=== PATIENT | male | born 1950 | race Caucasian/White ===

== ENCOUNTER 2017-07-07 22:21 | Emergency (ER) | payer MEDICARE ==
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
== END 2017-07-08 00:30 | disposition home or self-care (01) ==
LOC: JP.ED 22:21
DX: G81.92 Hemiplegia, unspecified affecting left dominant side (principal); R93.0 Abnormal findings on diagnostic imaging of skull and head, not elsewhere classified; I12.9 Hypertensive chronic kidney disease with stage 1 through stage 4 chronic kidney disease, or unspecified chronic kidney disease; N18.3 Chronic kidney disease, stage 3 (moderate); E11.22 Type 2 diabetes mellitus with diabetic chronic kidney disease; Z79.82 Long term (current) use of aspirin; Z79.899 Other long term (current) drug therapy
CPT/HCPCS: 36415; 70450; 80048; 84484; 85027; 93005; 99284; 99285-25

== ENCOUNTER 2019-01-02 16:45 | Emergency (ER) | payer MEDICARE ==
--- NOTE | 2019-01-02 17:50 | EDM.PDOC ---
ED HPI GENERAL MEDICAL PROBLEM - General Chief Complaint: Wound Recheck Stated Complaint: EAR IS BLEEDING Time Seen by Provider: 01/02/19 17:20 Source of Information: Reports: Patient, Family History Limitations: Reports: No Limitations - History of Present Illness INITIAL COMMENTS - FREE TEXT/NARRATIVE: 68-year-old male with a persistent bleeding lesion on his left earlobe. It's been bleeding for the past 2 hours. He scratched it and it started bleeding, there was no pain or previous injury. He is on Plavix. Onset: Sudden Duration: Hour(s): Associated Symptoms: Reports: No Other Symptoms - Related Data Allergies Allergy/AdvReac Type Severity Reaction Status Date / Time No Known Allergies Allergy Verified 01/02/19 17:09 Home Meds: Home Meds Aspirin [Ecotrin] 81 mg PO DAILY 02/16/17 [History] Losartan Potassium 50 mg PO DAILY 02/16/17 [History] Rosuvastatin [Crestor] 10 mg PO BEDTIME 02/16/17 [History] amLODIPine Besylate [Norvasc] 5 mg PO DAILY 07/07/17 [History] Carvedilol 1 tab PO BID 05/15/18 [History] Clopidogrel Bisulfate [Clopidogrel] 1 tab PO DAILY 05/15/18 [History] Glimepiride [Amaryl] 2 mg PO DAILY 01/02/19 [History] Past Medical History HEENT History: Reports: Impaired Vision Cardiovascular History: Reports: High Cholesterol, Hypertension, Other (See Below) Other Cardiovascular History: pulmonary edema Respiratory History: Reports: Other (See Below) Other Respiratory History: pleurisy Genitourinary History: Reports: Other (See Below) Other Genitourinary History: stage 3 kidney disease Neurological History: Reports: Migraines Psychiatric History: Reports: Other (See Below) Other Psychiatric History: claustrophobia Endocrine/Metabolic History: Reports: Diabetes, Type II Other Endocrine/Metabolic History: pre diabetic but taking oral medicine - Infectious Disease History Infectious Disease History: Reports: Chicken Pox, Measles - Past Surgical History HEENT Surgical History: Reports: Tonsillectomy Cardiovascular Surgical History: Reports: Coronary Artery Stent, Percutaneous Transluminal Angioplasty Other Cardiovascular Surgeries/Procedures: 4 stents Musculoskeletal Surgical History: Reports: Arthroscopic Knee, Arthroscopic Procedure Social & Family History - Tobacco Use Smoking Status *Q: Never Smoker - Caffeine Use Caffeine Use: Reports: Coffee, Tea - Alcohol Use Days Per Week of Alcohol Use: 5 Number of Drinks Per Day: 2 Total Drinks Per Week: 10 - Recreational Drug Use Recreational Drug Use: No ED ROS GENERAL - Review of Systems Review Of Systems: See Below Constitutional: Denies: Fever, Chills Respiratory: Denies: Shortness of Breath Cardiovascular: Denies: Chest Pain Neurological: Denies: Headache ED EXAM, SKIN/RASH Exam: See Below Exam Limited By: No Limitations General Appearance: Alert, No Apparent Distress Ears: Other (The left ear lobe has a very small 2 mm open wound that is persistently oozing and bleeding.) Respiratory/Chest: No Respiratory Distress Course - Vital Signs Last Recorded V/S: Last Vital Signs Temp 97.8 F 01/02/19 17:12 Pulse 69 01/02/19 17:12 Resp 18 01/02/19 17:12 BP 159/91 H 01/02/19 17:12 Pulse Ox 95 01/02/19 17:12 - Re-Assessments/Exams Free Text/Narrative Re-Assessment/Exam: 01/02/19 17:52 The earlobe was infiltrated with a small amount of 1% lidocaine with epinephrine. After cleansing with alcohol, cautery was used to stop the bleeding. There were no complications. A Band-Aid was placed over the wound for protection. This should heal up it's left alone. Departure - Departure Time of Disposition: 18:15 Disposition: Home, Self-Care 01 Clinical Impression: Bleeding from left ear - Discharge Information Instructions: Wound Care, Adult Referrals: Dania Catalan PA-C [Primary Care Provider] - Forms: ED Department Discharge Care Plan Goals: Keep wound covered and clean while healing. Try direct pressure if bleeding recurs.
== END 2019-01-02 18:15 | disposition home or self-care (01) ==
LOC: JP.ED 16:45
DX: S01.302A Unspecified open wound of left ear, initial encounter (principal); I12.9 Hypertensive chronic kidney disease with stage 1 through stage 4 chronic kidney disease, or unspecified chronic kidney disease; E11.22 Type 2 diabetes mellitus with diabetic chronic kidney disease; N18.3 Chronic kidney disease, stage 3 (moderate); E78.00 Pure hypercholesterolemia, unspecified; Z79.82 Long term (current) use of aspirin; Z79.84 Long term (current) use of oral hypoglycemic drugs; Z79.899 Other long term (current) drug therapy
CPT/HCPCS: 12011; 99281; 99282

== ENCOUNTER 2019-12-23 09:22 | Emergency (ER) | payer MEDICARE ==
--- NOTE | 2019-12-23 10:32 | EDM.PDOC ---
ED HPI GENERAL MEDICAL PROBLEM - General Chief Complaint: General Stated Complaint: UNSURE IF HEART OR LEFT SHOULDER Time Seen by Provider: 12/23/19 10:10 Source of Information: Reports: Patient History Limitations: Reports: No Limitations - History of Present Illness INITIAL COMMENTS - FREE TEXT/NARRATIVE: 69-year-old male with a history of coronary artery disease and hypokalemia, presents with vague left shoulder and left anterior chest discomfort for the past several days after increasing activity with his left shoulder. It does hurt to move his arm and take a deep breath, he has no shortness of breath or diaphoresis. He called the nurse line to get an appointment and they sent him to the emergency room. He has no pain while lying still, he can reproduce a small amount of pain with a deep breath or certain range of motion's of the shoulder, it tends to be located anteriorly over the left chest wall. No rash over painful area or bruising. He is also interested in obtaining a COVID test. He was told to come in to get a COVID test and EKG. Left Chest Pain Score (Numeric/FACES): 0 - Related Data Allergies Allergy/AdvReac Type Severity Reaction Status Date / Time No Known Allergies Allergy Verified 12/23/19 09:47 Home Meds: Home Meds Aspirin [Ecotrin] 81 mg PO DAILY 02/16/17 [History] Losartan Potassium 50 mg PO DAILY 02/16/17 [History] Rosuvastatin [Crestor] 10 mg PO BEDTIME 02/16/17 [History] amLODIPine Besylate [Norvasc] 5 mg PO DAILY 07/07/17 [History] Clopidogrel Bisulfate [Clopidogrel] 1 tab PO DAILY 05/15/18 [History] carvediloL [Carvedilol] 1 tab PO BID 05/15/18 [History] Glimepiride [Amaryl] 2 mg PO DAILY 01/02/19 [History] Past Medical History HEENT History: Reports: Impaired Vision Cardiovascular History: Reports: High Cholesterol, Hypertension, Other (See [place]) Other Cardiovascular History: pulmonary edema Respiratory History: Reports: Other (See Below) Other Respiratory History: pleurisy Genitourinary History: Reports: Other (See Below) Other Genitourinary History: stage 3 kidney disease Musculoskeletal History: Reports: None Neurological History: Reports: Migraines Psychiatric History: Reports: Other (See Below) Other Psychiatric History: claustrophobia Endocrine/Metabolic History: Reports: Diabetes, Type II Other Endocrine/Metabolic History: pre diabetic but taking oral medicine - Infectious Disease History Infectious Disease History: Reports: Chicken Pox, Measles - Past Surgical History Head Surgeries/Procedures: Reports: None HEENT Surgical History: Reports: Tonsillectomy Cardiovascular Surgical History: Reports: Coronary Artery Stent, Percutaneous Transluminal Angioplasty Other Cardiovascular Surgeries/Procedures: 4 stents Respiratory Surgical History: Reports: None Endocrine Surgical History: Reports: None Neurological Surgical History: Reports: None Musculoskeletal Surgical History: Reports: Arthroscopic Knee, Arthroscopic Procedure, Shoulder Surgery Dermatological Surgical History: Reports: None Social & Family History - Tobacco Use Smoking Status *Q: Former Smoker Years of Tobacco use: 30 Packs/Tins Daily: 0 Used Tobacco, but Quit: Yes Month/Year Tobacco Last Used: 1999 Second Hand Smoke Exposure: No - Caffeine Use Caffeine Use: Reports: Coffee - Recreational Drug Use Recreational Drug Use: No ED ROS GENERAL - Review of Systems Review Of Systems: See Below Constitutional: Denies: Fever, Chills, Malaise HEENT: Denies: Throat Pain Respiratory: Reports: Pleuritic Chest Pain. Denies: Shortness of Breath, Cough Cardiovascular: Reports: Chest Pain GI/Abdominal: Denies: Abdominal Pain, Nausea, Vomiting Skin: Reports: No Symptoms Neurological: Denies: Dizziness, Headache Psychiatric: Reports: No Symptoms ED EXAM, GENERAL - Physical Exam Exam: See Below Exam Limited By: No Limitations General Appearance: Alert, No Apparent Distress Head: Atraumatic Neck: Non-Tender Respiratory/Chest: Lungs Clear Cardiovascular: Regular Rate, Rhythm. No: Extra Beats GI/Abdominal: Soft, Non-Tender Extremities: Normal Inspection. No: Pedal Edema Neurological: Alert, Oriented, Other (I can reproduce anterior shoulder discomfort with external rotation of the shoulder on the left, and palpation of the lateral costochondral junction) Psychiatric: Normal Affect, Normal Mood Course - Vital Signs Last Recorded V/S: Last Vital Signs Temp 97.7 F 12/23/19 09:56 Pulse 71 12/23/19 10:35 Resp 15 12/23/19 10:35 BP 143/92 H 12/23/19 10:35 Pulse Ox 96 12/23/19 10:35 - Orders/Labs/Meds Orders: Active Orders 24 hr Category Date Time Status CORONAVIRUS COVID-19, [facility]CEE Stat Lab 12/23/19 10:57 Received Labs: Laboratory Tests 12/23/19 12/23/19 12/23/19 Range/Units 10:29 10:29 10:29 WBC 6.4 (4.5-11.0) K/uL RBC 4.68 (4.30-5.90) M/uL Hgb 13.8 (12.0-15.0) g/dL Hct 41.7 (40.0-54.0) % MCV 89 (80-98) fL MCH 30 (27-31) pg MCHC 33 (32-36) % Plt Count 206 (150-400) K/uL Neut % (Auto) 66 (36-66) % Lymph % (Auto) 24 (24-44) % [place] % (Auto) 9 H (2-6) % Eos % (Auto) 1 L (2-4) % Baso % (Auto) 0 (0-1) % Sodium 141 (140-148) mmol/L Potassium 4.0 (3.6-5.2) mmol/L Chloride 105 (100-108) mmol/L Carbon Dioxide 28 (21-32) mmol/L Anion Gap 8.3 (5.0-14.0) mmol/L BUN 20 H (7-18) mg/dL Creatinine 1.2 (0.8-1.3) mg/dL Est Cr Clr Drug Dosing 59.14 mL/min Estimated GFR (MDRD) 60 (>60) Glucose 202 H (74-106) mg/dL Calcium 8.7 (8.5-10.1) mg/dL Troponin I < 0.017 (0.000-0.056) ng/mL - Re-Assessments/Exams Free Text/Narrative Re-Assessment/Exam: 12/23/19 10:39 EKG shows no acute findings. CBC, BMP and troponin were obtained as well as a COVID-19 test at the patient's request. He is not significantly symptomatic and the COVID test is being done at the patient request only. This will be a send out. 12/23/19 11:14 CBC and BMP are reassuring, troponin is 0. Patient will be informed of his COVID test when available, a regular dose of naproxen or ibuprofen may be beneficial. Departure - Departure Time of Disposition: 11:21 Disposition: Home, Self-Care 01 Clinical Impression: Costochondritis - Discharge Information Instructions: Costochondritis, [id number] Referrals: Dania Catalan PA-C [Primary Care Provider] - Forms: ED Department Discharge Care Plan Goals: Increase activity as tolerated, regular dose of anti-inflammatory will be helpful and recheck next week if not improving satisfactorily. We will be in touch with you with your COVID results when available. Sepsis Event Note (ED) - Evaluation Sepsis Screening Result: No Definite Risk - Focused Exam Vital Signs: Vital Signs Temp Pulse Resp BP Pulse Ox 12/23/19 10:35 71 15 143/92 H 96 12/23/19 10:05 74 10 L 140/82 94 L 12/23/19 09:56 97.7 F 76 16 131/72 95 12/23/19 09:53 97.7 F 76 16 131/72 95 - My Orders Last 24 Hours: My Active Orders 12/23/19 10:57 CORONAVIRUS COVID-19, KAYCEE Stat - Assessment/Plan Last 24 Hours: My Active Orders 12/23/19 10:57 CORONAVIRUS COVID-19, K[facility]CEE Stat
== END 2019-12-23 11:21 | disposition home or self-care (01) ==
LOC: JP.ED 09:22
DX: M94.0 Chondrocostal junction syndrome [Tietze] (principal); E78.00 Pure hypercholesterolemia, unspecified; I12.9 Hypertensive chronic kidney disease with stage 1 through stage 4 chronic kidney disease, or unspecified chronic kidney disease; N18.3 Chronic kidney disease, stage 3 (moderate); E11.22 Type 2 diabetes mellitus with diabetic chronic kidney disease; Z79.84 Long term (current) use of oral hypoglycemic drugs; Z79.02 Long term (current) use of antithrombotics/antiplatelets; Z79.899 Other long term (current) drug therapy; Z79.82 Long term (current) use of aspirin; Z87.891 Personal history of nicotine dependence; Z20.828 Contact with and (suspected) exposure to other viral communicable diseases
CPT/HCPCS: 36415; 80048; 84484; 85025; 93010; 99283; 99284; U0002

== ENCOUNTER 2020-02-08 09:52 | Emergency (ER) | payer MEDICARE ==
[2020-02-08] MEDS ORDERED: Sodium Chloride 0.9% 10 ML Syringe FLUSH PRN (10:21)
--- NOTE | 2020-02-08 10:42 | EDM.PDOC ---
ED HPI GENERAL MEDICAL PROBLEM - General Chief Complaint: Neuro Symptoms/Deficits Stated Complaint: TIA SYMPTOMS Time Seen by Provider: 02/08/20 10:25 Source of Information: Reports: Patient, Old Records, RN History Limitations: Reports: No Limitations - History of Present Illness INITIAL COMMENTS - FREE TEXT/NARRATIVE: 69 yo male with a pHx of a TIA that was treated with Plavix and who remains on Plavix presents with poor coordination of his L hand/arm since about 0200h today. He thinks he may have slight numbness of that hand as well. No other neuro deficits noted by patient or . No MARSHALL. Was awake at onset. 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) (none) Headache Pain Score (Numeric/FACES): 1 - Related Data Allergies Allergy/AdvReac Type Severity Reaction Status Date / Time No Known Allergies Allergy Verified 02/08/20 10:07 Home Meds: Home Meds Aspirin [Ecotrin] 81 mg PO DAILY 02/16/17 [History] Losartan Potassium 50 mg PO DAILY 02/16/17 [History] Rosuvastatin [Crestor] 10 mg PO BEDTIME 02/16/17 [History] amLODIPine Besylate [Norvasc] 5 mg PO DAILY 07/07/17 [History] Clopidogrel Bisulfate [Clopidogrel] 1 tab PO DAILY 05/15/18 [History] carvediloL [Carvedilol] 1 tab PO BID 05/15/18 [History] Glimepiride [Amaryl] 2 mg PO DAILY 01/02/19 [History] Sildenafil [Revatio] 20 mg PO DAILY 02/08/20 [History] Past Medical History HEENT History: Reports: Impaired Vision Cardiovascular History: Reports: High Cholesterol, Hypertension, Other (See Below) Other Cardiovascular History: pulmonary edema Respiratory History: Reports: Other (See Below) Other Respiratory History: pleurisy Genitourinary History: Reports: Other (See Below) Other Genitourinary History: stage 3 kidney disease Musculoskeletal History: Reports: None Neurological History: Reports: Migraines, TIA Psychiatric History: Reports: Other (See Below) Other Psychiatric History: claustrophobia Endocrine/Metabolic History: Reports: Diabetes, Type II Other Endocrine/Metabolic History: pre diabetic but taking oral medicine - Infectious Disease History Infectious Disease History: Reports: Hepatitis C, Measles - Past Surgical History Head Surgeries/Procedures: Reports: None HEENT Surgical History: Reports: Tonsillectomy Cardiovascular Surgical History: Reports: Coronary Artery Stent, Percutaneous Transluminal Angioplasty Other Cardiovascular Surgeries/Procedures: 4 stents Musculoskeletal Surgical History: Reports: Arthroscopic Knee, Arthroscopic Procedure, Shoulder Surgery Social & Family History - Tobacco Use Smoking Status *Q: Never Smoker - Caffeine Use Caffeine Use: Reports: Coffee - Alcohol Use Days Per Week of Alcohol Use: 3 Number of Drinks Per Day: 3 Total Drinks Per Week: 9 - Recreational Drug Use Recreational Drug Use: Yes Recreational Drug Type: Reports: Marijuana/Hashish Recreational Drug Use Frequency: Weekly ED ROS GENERAL - Review of Systems Review Of Systems: See Below Constitutional: Reports: No Symptoms HEENT: Reports: No Symptoms Respiratory: Reports: No Symptoms Cardiovascular: Reports: No Symptoms GI/Abdominal: Reports: No Symptoms : Reports: No Symptoms Musculoskeletal: Reports: No Symptoms Skin: Reports: No Symptoms Neurological: Reports: Other (coordination deficit L hand) Psychiatric: Reports: No Symptoms ED EXAM, NEURO - Physical Exam Exam: See Below Exam Limited By: No Limitations General Appearance: Alert, WD/WN, No Apparent Distress Eye Exam: Bilateral Eye: EOMI, Normal Inspection, PERRL Ears: Normal External Exam, Normal Canal, Hearing Grossly Normal, Normal TMs Nose: Normal Inspection, No Blood Throat/Mouth: Normal Inspection, Normal Lips, Normal Oropharynx, Normal Voice, No Airway Compromise Head Exam: Atraumatic, Normocephalic Neck: Normal Inspection Respiratory/Chest: No Respiratory Distress, Lungs Clear, Normal Breath Sounds, No Accessory Muscle Use Cardiovascular: Regular Rate, Rhythm, No Edema. No: Irregularly Irregular GI/Abdominal: Normal Bowel Sounds, Soft, Non-Tender, No Distention Neurological: Alert, Normal Mood/Affect, Normal Dorsiflexion, CN II-XII Intact, Normal Plantar Flexion, Normal Reflexes, No Motor/Sensory Deficits, Oriented x 3, Other (struggles with putting his mask over his L ear, having a hard time holding his phone with his L hand. ). No: Abnormal Gait, Abnormal Finger to Nose (on left), Difficulty Walking DTR: 2+: Bicep (R), Bicep (L) Extremities: Normal Inspection, Normal Range of Motion, Non-Tender, No Pedal Edema Psychiatric: Normal Affect, Normal Mood Skin Exam: Warm, Dry, Intact, Normal Color, No Rash Course - Vital Signs Text/Narrative:: Case discussed with the 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 DIRECTED Sodium Chloride 0.9% [Normal Saline] 1,000 ml Med 02/08/20 15:45 Active IV ASDIRECTED Sodium Chloride 0.9% [Saline Flush] Med 02/08/20 10:21 Active 10 ml FLUSH ASDIRECTED PRN Saline Lock Insert [OM.PC] Routine Oth 02/08/20 10:21 Ordered Medication Orders Sodium Chloride (Normal Saline) 1,000 mls @ 500 mls/hr IV ASDIRECTED DOROTHY Iopamidol (Isovue-370 (76%)) 100 ml IV . DIRECTED DOROTHY Stop: 02/08/20 20:00 Last Admin: 02/08/20 16:19 Dose: 100 ml Documented by: DEVIKA Sodium Chloride (Saline Flush) 10 ml FLUSH ASDIRECTED PRN PRN Reason: Keep Vein Open Labs: Laboratory Tests 02/08/20 02/08/20 Range/Units 10:32 10:32 WBC 5.8 (4.5-11.0) K/uL RBC 4.75 (4.30-5.90) M/uL Hgb 14.0 (12.0-15.0) g/dL Hct 42.7 (40.0-54.0) % MCV 90 (80-98) fL MCH 30 (27-31) pg MCHC 33 (32-36) % Plt Count 198 (150-400) K/uL Sodium 140 (140-148) mmol/L Potassium 4.0 (3.6-5.2) mmol/L Chloride 102 (100-108) mmol/L Carbon Dioxide 29 (21-32) mmol/L Anion Gap 8.7 (5.0-14.0) mmol/L BUN 22 H (7-18) mg/dL Creatinine 1.2 (0.8-1.3) mg/dL Est Cr Clr Drug Dosing 59.14 mL/min Estimated GFR (MDRD) 60 (>60) Glucose 174 H (74-106) mg/dL Calcium 8.8 (8.5-10.1) mg/dL Troponin I < 0.017 (0.000-0.056) ng/mL Meds: Medications Generic Name Dose Route Start Last Admin Trade Name Freq PRN Reason Stop Dose Admin Sodium Chloride 1,000 mls @ 500 mls/hr 02/08/20 15:45 Normal Saline IV ASDIRECTED DOROTHY Iopamidol 100 ml 02/08/20 16:00 02/08/20 16:19 Isovue-370 (76%) IV 02/08/20 20:00 100 ml . DIRECTED DOROTHY Administration Sodium Chloride 10 ml 02/08/20 10:21 Saline Flush FLUSH ASDIRECTED PRN Keep Vein Open Discontinued Medications Generic Name Dose Route Start Last Admin Trade Name Freq PRN Reason Stop Dose Admin Diazepam 15 mg 02/08/20 10:46 02/08/20 12:08 Valium. PO 02/08/20 10:47 15 mg ONETIME ONE Administration Sodium Chloride 100 mls @ 3 mls/sec 02/08/20 16:00 02/08/20 16:20 Normal Saline IV 02/08/20 16:01 4 mls/sec ASDIRECTED DOROTHY Administration Sodium Chloride 10 ml 02/08/20 15:46 02/08/20 16:20 Saline Flush FLUSH 02/08/20 15:47 10 ml ONETIME ONE Administration - Radiology Interpretation Free Text/Narrative:: MRI Brain-subacute CVA noted R post parietal lobe CTA neck-50% R internal carotid stenosis Departure - Departure Time of Disposition: 17:07 Disposition: Home, Self-Care 01 Condition: Fair Clinical Impression: CVA (cerebral vascular accident) Qualifiers: CVA mechanism: unspecified Qualified Code(s): I63.9 - Cerebral infarction, unspecified - Discharge Information *PRESCRIPTION DRUG MONITORING PROGRAM REVIEWED*: Not Applicable *COPY OF PRESCRIPTION DRUG MONITORING REPORT IN PATIENT ANGEL: Not Applicable Referrals: PCP,None [Primary Care Provider] - Forms: ED Department Discharge Additional Instructions: Continue your current medications. Return if you are worse. The [facility] neurologist recommends that you see a neurologist within the week at the clinic here in [place]. Your primary care provider will need to schedule this for you as it now after 5 pm and we can no longer do this. He recommends a "Link Device" is needed for you to assess for atrial fibrillation as a cause of your strokes. Sepsis Event Note (ED) - Evaluation Sepsis Screening Result: No Definite Risk - Focused Exam Vital Signs: Vital Signs Temp Pulse Resp BP Pulse Ox 02/08/20 16:08 72 168/98 H 02/08/20 15:12 68 133/94 H 02/08/20 14:06 63 18 128/96 H 96 02/08/20 12:08 72 12 156/88 H 96 02/08/20 11:27 75 17 157/97 H 96 02/08/20 11:07 76 13 152/88 H 94 L 02/08/20 10:39 73 14 158/90 H 97 02/08/20 10:19 72 11 L 148/89 H 96 02/08/20 09:58 36.7 C 77 11 L 148/79 H 97 - My Orders Last 24 Hours: My Active Orders 02/08/20 10:01 Cardiac Monitoring [RC] .As Directed 02/08/20 10:21 Sodium Chloride 0.9% [Saline Flush] 10 ml FLUSH ASDIRECTED PRN Saline Lock Insert [OM.PC] Routine 02/08/20 15:45 Sodium Chloride 0.9% [Normal Saline] 1,000 ml IV ASDIRECTED 02/08/20 16:00 Iopamidol [Isovue-370 (76%)] 100 ml IV . DIRECTED - Assessment/Plan Last 24 Hours: My Active Orders 02/08/20 10:01 Cardiac Monitoring [RC] .As Directed 02/08/20 10:21 Sodium Chloride 0.9% [Saline Flush] 10 ml FLUSH ASDIRECTED PRN Saline Lock Insert [OM.PC] Routine 02/08/20 15:45 Sodium Chloride 0.9% [Normal Saline] 1,000 ml IV ASDIRECTED 02/08/20 16:00 Iopamidol [Isovue-370 (76%)] 100 ml IV . DIRECTED
[2020-02-08] MEDS ORDERED: Diazepam 5 MG Tab PO ONE (10:46)
--- NOTE | 2020-02-08 14:16 | MR ---
Brain wo Cont CLINICAL HISTORY: CVA COMPARISON: July 07, 2017 TECHNIQUE: Multiple axial, sagittal, and coronal images were obtained on a 1.5 T magnet with multiweighted sequences, FLAIR, and diffusion imaging without contrast. FINDINGS: There are gyral foci of restricted diffusion in the right posterior parietal lobe. This shows some mild increased signal on FLAIR and T2 images. There is a lacunar-type infarct in the right centrum semiovale region of remote chronology. There are moderate scattered T2 hyperintensities in the periventricular and subcortical white matter represent chronic ischemic microvascular changes. There is no focal mass lesion. There is no hemmorhage or extraaxial collection. The basal cisterns and sulci over the convexities are mildly prominent. The ventricles are normal for age. IMPRESSION: Regional restricted diffusion in the cortex of the right posterior parietal lobe most consistent with acute ischemic infarct. Moderate chronic ischemic microvascular changes Mild age-related atrophy
[2020-02-08] MEDS ORDERED: Sodium Chloride 0.9% 1,000 ML IV SCH (15:45)
[2020-02-08] MEDS ORDERED: Sodium Chloride 0.9% 10 ML Syringe FLUSH ONE (15:46)
[2020-02-08] MEDS ORDERED: Sodium Chloride 0.9% 100 ML IV SCH (16:00)
[2020-02-08] MEDS ORDERED: Iopamidol 755 Mg/ML 100 ML Bottle IV SCH (16:00)
--- NOTE | 2020-02-08 16:56 | CRLCT ---
DATE: 02/08/2020. CLINICAL HISTORY: Patient with subacute cerebrovascular accident. TECHNIQUE: Standard helical CT image acquisition of the neck up to the skull base after bolus intravenous contrast enhancement. Multiplanar reconstructed images performed on a separate workstation. COMPARISON: None. FINDINGS: Calcified and noncalcified atherosclerotic plaque involve the aortic arch and origins of the great vessels, resulting in mild to moderate stenoses of the origins of the left common carotid and left subclavian arteries. The origin of the right vertebral artery is patent. The origin of the left vertebral artery is patent. The common carotid arteries are patent. Calcified and noncalcified atherosclerotic plaque involves the bilateral carotid bifurcations and carotid bulbs resulting in mild luminal stenosis of the proximal right ICA (Approximately 40-50 percent by NASCET criteria) had no significant luminal stenosis of the proximal left ICA. The rest of the cervical segments of the internal carotid arteries are patent up to the skull base. The left vertebral artery is dominant and the right vertebral artery markedly hypoplastic. The cervical segments of the vertebral arteries are patent up to the skull base. The visualized intracranial vasculature is unremarkable. 8 mm ground-glass opacity is seen at the right lung apex. The thyroid gland is unremarkable. The soft tissues of the neck are unremarkable. There are degenerative changes in the cervical spine. IMPRESSION: 1. Mild luminal stenosis of the proximal right ICA (approximately 40-50 percent by NASCET criteria) secondary to calcified and noncalcified atherosclerotic plaque. 2. 8mm groundglass nodule in right lung apex. CT chest is recommended for further assessment. Please note that all CT scans at this facility use dose modulation, iterative reconstruction, and/or weight-based dosing when appropriate to reduce radiation dose to as low as reasonably achievable. Dictated by Tomás Rudd MD @ Feb 09 2020 1:59AM Signed by Dr. Tomás Rudd @ Feb 09 2020 2:08AM
== END 2020-02-08 18:01 | disposition home or self-care (01) ==
LOC: JP.ED 09:52
DX: I63.9 Cerebral infarction, unspecified (principal); E78.00 Pure hypercholesterolemia, unspecified; I12.9 Hypertensive chronic kidney disease with stage 1 through stage 4 chronic kidney disease, or unspecified chronic kidney disease; N18.3 Chronic kidney disease, stage 3 (moderate); E11.22 Type 2 diabetes mellitus with diabetic chronic kidney disease; Z79.82 Long term (current) use of aspirin; Z79.02 Long term (current) use of antithrombotics/antiplatelets; Z79.84 Long term (current) use of oral hypoglycemic drugs; Z79.899 Other long term (current) drug therapy
CPT/HCPCS: 36415; 70498; 70551; 80048; 84484; 85027; 96360; 99284; A9270; J7030; J7050; Q9967

== ENCOUNTER 2020-02-10 22:34 | Emergency (ER) | payer MEDICARE ==
--- NOTE | 2020-02-10 23:51 | EDM.PDOC ---
ED HPI GENERAL MEDICAL PROBLEM - General Chief Complaint: Neuro Symptoms/Deficits Stated Complaint: POSSIBLE STROKE Time Seen by Provider: 02/10/20 23:02 Source of Information: Reports: Patient, Old Records, RN Notes Reviewed History Limitations: Reports: No Limitations - History of Present Illness INITIAL COMMENTS - FREE TEXT/NARRATIVE: 69-year-old gentleman presents emergency department a complaint of numbness and tingling in his left arm with numbness and tingling on his left face. He was in the emergency department 2 days prior for similar symptoms only with discoordin ation of the left arm evaluation at that time which did include an MRI reveals right posterior parietal lobe most consistent with acute ischemic infarct. He was placed on combination aspirin and Plavix he states his last known well time was 2200 his symptoms lasted approximately 5 minutes he is completely asymptomatic at this time - Related Data Allergies Allergy/AdvReac Type Severity Reaction Status Date / Time No Known Allergies Allergy Verified 02/10/20 22:44 Home Meds: Home Meds Aspirin [Ecotrin] 81 mg PO DAILY 02/16/17 [History] Losartan Potassium 50 mg PO DAILY 02/16/17 [History] Rosuvastatin [Crestor] 40 mg PO BEDTIME 02/16/17 [History] amLODIPine Besylate [Norvasc] 5 mg PO DAILY 07/07/17 [History] Clopidogrel Bisulfate [Clopidogrel] 1 tab PO DAILY 05/15/18 [History] carvediloL [Carvedilol] 1 tab PO BID 05/15/18 [History] Glimepiride [Amaryl] 2 mg PO DAILY 01/02/19 [History] Sildenafil [Revatio] 20 mg PO DAILY 02/08/20 [History] Past Medical History HEENT History: Reports: Impaired Vision Cardiovascular History: Reports: High Cholesterol, Hypertension, Other (See Below) Other Cardiovascular History: pulmonary edema Respiratory History: Reports: Other (See Below) Other Respiratory History: pleurisy Genitourinary History: Reports: Other (See Below) Other Genitourinary History: stage 3 kidney disease Musculoskeletal History: Reports: None Neurological History: Reports: Migraines, TIA Psychiatric History: Reports: Other (See Below) Other Psychiatric History: claustrophobia Endocrine/Metabolic History: Reports: Diabetes, Type II Other Endocrine/Metabolic History: pre diabetic but taking oral medicine - Infectious Disease History Infectious Disease History: Reports: Chicken Pox - Past Surgical History Head Surgeries/Procedures: Reports: None HEENT Surgical History: Reports: Tonsillectomy Cardiovascular Surgical History: Reports: Coronary Artery Stent, Percutaneous Transluminal Angioplasty Other Cardiovascular Surgeries/Procedures: 4 stents Musculoskeletal Surgical History: Reports: Arthroscopic Knee, Arthroscopic Procedure, Shoulder Surgery Dermatological Surgical History: Reports: None Social & Family History - Tobacco Use Smoking Status *Q: Former Smoker Years of Tobacco use: 7 Packs/Tins Daily: 0.5 Used Tobacco, but Quit: Yes Month/Year Tobacco Last Used: 30 Second Hand Smoke Exposure: No - Caffeine Use Caffeine Use: Reports: Coffee - Alcohol Use Days Per Week of Alcohol Use: 0 - Recreational Drug Use Recreational Drug Use: Yes Recreational Drug Type: Reports: Marijuana/Hashish Recreational Drug Use Frequency: Rarely ED ROS GENERAL - Review of Systems Review Of Systems: See Below Constitutional: Reports: No Symptoms HEENT: Reports: No Symptoms Respiratory: Reports: No Symptoms Cardiovascular: Reports: No Symptoms GI/Abdominal: Reports: No Symptoms : Reports: No Symptoms Musculoskeletal: Reports: No Symptoms Neurological: Reports: Numbness, Tingling ED EXAM, NEURO - Physical Exam Exam: See Below Exam Limited By: No Limitations General Appearance: Alert, WD/WN, No Apparent Distress Respiratory/Chest: No Respiratory Distress Neurological: Alert, CN II-XII Intact, Normal Gait, No Motor/Sensory Deficits, Oriented x 3 Course - Vital Signs Last Recorded V/S: Last Vital Signs Temp 97.1 F 02/10/20 23:02 Pulse 81 02/10/20 23:02 Resp 20 02/10/20 23:02 BP 130/80 02/10/20 23:02 Pulse Ox 95 02/10/20 23:02 Departure - Departure Time of Disposition: 23:51 Disposition: DC/Tfer to Acute Hospital 02 Condition: Fair Clinical Impression: Numbness and tingling in left arm - Discharge Information Referrals: Dania Catalan PA-C [Primary Care Provider] - Sepsis Event Note (ED) - Focused Exam Vital Signs: Vital Signs Temp Pulse Resp BP Pulse Ox 02/10/20 23:02 97.1 F 81 20 130/80 95 - Assessment/Plan Plan: Assessment Acuity = acute Site and laterality = numbness and tingling left arm with spontaneous resolution Etiology = unknown Manifestations = none Location of injury = Home Lab values = none Plan Called and discussed the case with Dr. Rodgers neuro interventionalists at [facility] [id number] recommended repeat MRI echocardiogram and admission next talked to the hospitalist Dr. Delatorre at 2340 kindly accepted the patient in transport he will be transported via EMS ground he is asymptomatic at this time This note was dictated using [employer] voice recognition software please call with any questions on syntax or grammar.
== END 2020-02-11 00:24 ==
LOC: JP.ED 22:34
DX: R20.2 Paresthesia of skin (principal); R20.0 Anesthesia of skin; I12.9 Hypertensive chronic kidney disease with stage 1 through stage 4 chronic kidney disease, or unspecified chronic kidney disease; E11.22 Type 2 diabetes mellitus with diabetic chronic kidney disease; N18.3 Chronic kidney disease, stage 3 (moderate); E78.00 Pure hypercholesterolemia, unspecified; Z79.82 Long term (current) use of aspirin; Z79.02 Long term (current) use of antithrombotics/antiplatelets; Z79.899 Other long term (current) drug therapy; Z86.73 Personal history of transient ischemic attack (TIA), and cerebral infarction without residual deficits; Z95.5 Presence of coronary angioplasty implant and graft; Z79.84 Long term (current) use of oral hypoglycemic drugs; Z87.891 Personal history of nicotine dependence
CPT/HCPCS: 99285

== ENCOUNTER 2023-09-29 08:42 | Day surgery (SDC) | payer MEDICARE ==
[2023-09-29] MEDS ORDERED: fentaNYL 100 MCG/2 ML SDV ONE (09:04)
[2023-09-29] MEDS ORDERED: Propofol 200 MG/20 ML SDV ONE (09:04)
[2023-09-29] MEDS: Sodium Chloride 0.9% 1,000 ML IV SCH (09:20)
== END 2023-09-29 11:30 | disposition home or self-care (01) ==
LOC: JP.SDS 08:42
PROVIDERS: ATTEND Surgery
DX: Z12.11 Encounter for screening for malignant neoplasm of colon (principal); I25.10 Atherosclerotic heart disease of native coronary artery without angina pectoris; I12.9 Hypertensive chronic kidney disease with stage 1 through stage 4 chronic kidney disease, or unspecified chronic kidney disease; N18.9 Chronic kidney disease, unspecified
CPT/HCPCS: 00812-QZ; J2704; J3010; J7030

== ENCOUNTER 2025-05-05 10:18 | Emergency (ER) | payer MEDICARE | END 2025-05-05 12:51 | disposition home or self-care (01) | LOC: JP.ED 10:18 | DX: I95.9 Hypotension, unspecified (principal); E86.0 Dehydration; E11.22 Type 2 diabetes mellitus with diabetic chronic kidney disease; N18.30 Chronic kidney disease, stage 3 unspecified; I12.9 Hypertensive chronic kidney disease with stage 1 through stage 4 chronic kidney disease, or unspecified chronic kidney disease; E78.00 Pure hypercholesterolemia, unspecified; Z86.73 Personal history of transient ischemic attack (TIA), and cerebral infarction without residual deficits; Z95.5 Presence of coronary angioplasty implant and graft; Z79.899 Other long term (current) drug therapy; Z79.82 Long term (current) use of aspirin; Z79.84 Long term (current) use of oral hypoglycemic drugs | CPT/HCPCS: 82947; 96360; 99284; J7030 ==